=== PATIENT | male | born 1960 | race Caucasian/White ===

== ENCOUNTER 2018-09-22 06:39 | Day surgery (SDC) | payer OTHER ==
[2018-09-22 07:03] VITALS: BMI 20.9
[2018-09-22 07:18] VITALS: O2SAT 100
[2018-09-22] MEDS ORDERED: Lactated Ringer's 500 ML IV ONE (08:06)
[2018-09-22] MEDS ORDERED: Propofol 10 mg/ml Inj (20 ML) ONE (08:10)
[2018-09-22] MEDS ORDERED: Lidocaine Hydrochloride 5 ML INJ ONE (08:10)
[2018-09-22] MEDS ORDERED: Lactated Ringer's 500 ML IV SCH (08:15)
[2018-09-22 09:13] VITALS: TEMP 98
[2018-09-22 09:53] VITALS: BP 120/68; PULSE 60; RESP 20
== END 2018-09-22 09:45 | disposition home or self-care (01) ==
LOC: C.ENDO 06:39
PROVIDERS: ATTEND Internal Medicine Gastroenterology
DX: Z12.11 Encounter for screening for malignant neoplasm of colon (principal); K63.5 Polyp of colon; D12.5 Benign neoplasm of sigmoid colon; K64.1 Second degree hemorrhoids
CPT/HCPCS: 45380; 88305; J2704; J3010; J7120